=== PATIENT | female | born 1940 | race Caucasian/White ===

== ENCOUNTER 2018-03-02 17:49 | Emergency (ER) | payer MEDICARE ==
[~2018-03-02] VITALS: Ht 172.7 cm; Wt 105.9 kg
[2018-03-02] MEDS ORDERED: VITA80004 PO (18:33)
[2018-03-02] MEDS ORDERED: ASCO10004 PO (18:33)
[2018-03-02] MEDS ORDERED: LINA5TAB PO (18:33)
[2018-03-02] MEDS ORDERED: BUPR75TA6 PO (18:33)
[2018-03-02] MEDS ORDERED: LOSA1TAB25 PO (18:33)
[2018-03-02] MEDS ORDERED: CHOL500015 PO (18:33)
[2018-03-02 18:39] LABS: BASOPHILS # (AUTO) 0.02 x10^3/uL (0-0.1); BASOPHILS % (AUTO) 0 % (0-1); EOSINOPHILS % (AUTO) 2 % (1-7); LYMPHOCYTES # (AUTO) 1.85 x10^3/uL (1-3.4); LYMPHOCYTES % (AUTO) 31 % (22-44); MD NO; MEAN CORPUSCULAR HEMOGLOBIN 31.3 pg (27.0-34.8); MEAN CORPUSCULAR HGB CONC 33.9 g/dL (32.4-35.8); MEAN CORPUSCULAR VOLUME 92.2 fL (80-100); MEAN PLATELET VOLUME 7.2 fL (7.4-10.4); MONOCYTES # (AUTO) 0.35 x10^3/uL (0.2-0.8); MONOCYTES % (AUTO) 6 % (2-9); NEUTROPHILS # (AUTO) 3.64 x10^3/uL (1.8-6.8); NEUTROPHILS % (AUTO) 61 % (42-75); PLATELET COUNT 245 x10^3/uL (130-400); RED BLOOD COUNT 4.59 x10^6/uL (3.82-5.3); RED CELL DISTRIBUTION WIDTH 12.5 % (9.6-15.2)
[2018-03-02 18:46] LABS: ALBUMIN 3.7 g/dL (3.4-5.0); ANION GAP 7 mmol/L (5-15); CALCIUM 9.1 mg/dL (8.5-10.1); CHLORIDE 106 mmol/L (98-107); CREATININE 1.09 mg/dL (0.55-1.02)
[2018-03-02 20:23] VITALS: BP 131/48
== END 2018-03-02 20:37 | disposition home or self-care (01) ==
LOC: ED 20:31
DX: L03.115 Cellulitis of right lower limb (principal); L03.116 Cellulitis of left lower limb; M71.21 Synovial cyst of popliteal space [Baker], right knee; R60.9 Edema, unspecified; I10 Essential (primary) hypertension; E11.9 Type 2 diabetes mellitus without complications; I82.413 Acute embolism and thrombosis of femoral vein, bilateral
CPT/HCPCS: 36415; 71045; 80048; 82040; 83880; 85025; 93970; 99285

== ENCOUNTER → 2018-10-03 | Outpatient (CLI) | payer MEDICARE ==
[~2018-10-03] MED LIST: ASCO10004 PO; BUPR75TA6 PO; CHOL10003 PO; CHOL500015 PO; GLIM2TAB2 PO; HYDR-3237 PO; LINA5TAB PO; LOSA1TAB25 PO; VITA1TAB19 PO; VITA80004 PO; VITAMIN A PO
[2018-10-03 11:22] LABS: MICROSCOPIC NOT IND
== END | disposition home or self-care (01) ==
LOC: STAR 10:27
PROVIDERS: ATTEND Urology
DX: Z01.818 Encounter for other preprocedural examination (principal); N20.2 Calculus of kidney with calculus of ureter
CPT/HCPCS: 81003; 87086; 93005

== ENCOUNTER 2018-10-10 14:13 | Day surgery (SDC) | payer MEDICARE ==
[2018-10-03 11:26] VITALS: BP 168/82
[~2018-10-10] VITALS: Ht 172.7 cm; Wt 103.5 kg
[2018-10-10] MEDS ORDERED: LACTATED RINGERS 1,000 ML IV SCH ×2 (14:34→14:45)
[2018-10-10] MEDS ORDERED: ACETAMINOPHEN 500 MG TABLET PO ONE (15:00)
[2018-10-10] MEDS ORDERED: ONDANSETRON ODT 8 MG PO ONE (15:00)
[2018-10-10] MEDS ORDERED: FENTANYL PF 100 MCG/2ML ONE ×2 (15:27→16:56)
[2018-10-10] MEDS ORDERED: EPHEDRINE 50 MG/ML, 1ML ONE (15:51)
[2018-10-10] MEDS ORDERED: SUCCINYLCHOLINE 20 MG/ML, 10ML ONE (15:51)
[2018-10-10] MEDS ORDERED: CEFAZOLIN 1,000 MG ONE (17:18)
[2018-10-10] MEDS ORDERED: PROPOFOL 10 MG/ML, 20ML ONE (17:18)
[2018-10-10] MEDS ORDERED: DEXAMETHASONE 4 MG/ML, 1ML ONE (17:18)
[2018-10-10] MEDS ORDERED: HYDROmorphone 2 MG/ML, 1ML IVPush PRN (18:00)
[2018-10-10] MEDS ORDERED: OXYcodone 5 MG/5 ML ORAL.SOL UDC PO PRN (18:00)
[2018-10-10] MEDS ORDERED: FENTANYL PF 100 MCG/2ML IV PRN (18:00)
[2018-10-10] MEDS ORDERED: MIDAZOLAM 1 MG/ML, 2ML IV PRN (18:00)
[2018-10-10] MEDS ORDERED: ONDANSETRON 2MG/ML, 2ML IV PRN (18:00)
[2018-10-10] MEDS ORDERED: hydrALAzine 20 MG/ML, 1ML IV PRN (18:00)
[2018-10-10] MEDS ORDERED: D5%-0.45% NACL 1,000 ML IV SCH (19:00)
[2018-10-10] MEDS ORDERED: HYDROcodone/APAP 5/325 TABLET PO PRN (19:00)
[2018-10-10] MEDS ORDERED: ONDANSETRON 2MG/ML, 2ML IVPush PRN (19:00)
[2018-10-10] MEDS ORDERED: MORPHINE SULFATE 4 MG/ML, 1ML IV PRN (19:00)
[2018-10-10] MEDS ORDERED: HYDROcodone/APAP 5/325 TABLET ONE (19:05)
== END 2018-10-10 20:05 | disposition home or self-care (01) ==
LOC: OR 14:13 → 4NOR 18:19 → OR 20:05
PROVIDERS: ATTEND Urology
DX: N20.2 Calculus of kidney with calculus of ureter (principal); I10 Essential (primary) hypertension; E11.9 Type 2 diabetes mellitus without complications; E66.9 Obesity, unspecified; Z68.35 Body mass index [BMI] 35.0-35.9, adult; Z72.89 Other problems related to lifestyle; Z87.891 Personal history of nicotine dependence; Z98.890 Other specified postprocedural states; Z79.4 Long term (current) use of insulin; Z88.1 Allergy status to other antibiotic agents
CPT/HCPCS: 52356; 74018; 76000; 82360; 82962; 88300; C1758; C1769; C2617; J0330; J0690; J1100; J2704; J3010; J7120; Q0162; G0378

== ENCOUNTER 2018-11-02 09:13 | Day surgery (SDC) | payer MEDICARE ==
[~2018-11-02] VITALS: Ht 172.7 cm; Wt 103.0 kg
[2018-11-02 10:05] VITALS: BP 167/84
[2018-11-02] MEDS ORDERED: LACTATED RINGERS 1,000 ML IV SCH (10:15)
[2018-11-02 10:43] LABS: ALANINE AMINOTRANSFERASE 27 U/L (12-78); ALBUMIN 3.7 g/dL (3.4-5.0); ANION GAP 7 mmol/L (5-15); CALCIUM 8.9 mg/dL (8.5-10.1); CHLORIDE 112 mmol/L (98-107)
[2018-11-02 10:46] LABS: ALKALINE PHOSPHATASE 73 U/L (45-117); BILIRUBIN,TOTAL 0.4 mg/dL (0.2-1.0); TOTAL PROTEIN 6.9 g/dL (6.4-8.2)
[2018-11-02] MEDS ORDERED: FENTANYL PF 100 MCG/2ML ONE ×3 (11:27→12:39)
[2018-11-02] MEDS ORDERED: ONDANSETRON 2MG/ML, 2ML ONE (11:29)
[2018-11-02] MEDS ORDERED: DEXAMETHASONE 4 MG/ML, 1ML ONE (11:29)
[2018-11-02] MEDS ORDERED: PROPOFOL 10 MG/ML, 20ML ONE (11:29)
[2018-11-02] MEDS ORDERED: CEFAZOLIN 1,000 MG ONE (11:29)
[2018-11-02] MEDS ORDERED: HYDROmorphone 2 MG/ML, 1ML IVPush PRN (12:00)
[2018-11-02] MEDS ORDERED: PROMETHAZINE 25 MG/ML, 1ML IV PRN (12:00)
[2018-11-02] MEDS ORDERED: LABETALOL 5MG/ML, 20ML IV PRN (12:00)
[2018-11-02] MEDS ORDERED: DIAZEPAM 5 MG/ML, 2ML IVPush PRN (12:00)
[2018-11-02] MEDS ORDERED: hydrALAzine 20 MG/ML, 1ML IV PRN (12:00)
[2018-11-02] MEDS ORDERED: FENTANYL PF 100 MCG/2ML IV PRN (12:00)
[2018-11-02] MEDS ORDERED: ACETAMINOPHEN 325 MG TABLET PO PRN (12:00)
[2018-11-02] MEDS ORDERED: OXYcodone 5 MG/5 ML ORAL.SOL UDC PO PRN (12:00)
[2018-11-02] MEDS ORDERED: ALBUTEROL SULFATE 2.5 MG/3 ML NPPB PRN (12:00)
[2018-11-02] MEDS ORDERED: OXYcodone 5 MG/5 ML ORAL.SOL UDC ONE (12:39)
[2018-11-02] MEDS ORDERED: ACETAMINOPHEN 650 MG/20.3 ML UDC ONE (12:39)
== END 2018-11-02 14:05 | disposition home or self-care (01) ==
LOC: OUT 09:13
PROVIDERS: ATTEND Urology
DX: N20.0 Calculus of kidney (principal); E11.9 Type 2 diabetes mellitus without complications; I10 Essential (primary) hypertension; Z98.890 Other specified postprocedural states; Z72.89 Other problems related to lifestyle; Z87.891 Personal history of nicotine dependence; Z88.1 Allergy status to other antibiotic agents; Z79.84 Long term (current) use of oral hypoglycemic drugs
CPT/HCPCS: 36415; 52353; 74018; 76000; 80053; 82360; 88300; C1758; C1769; J0690; J1100; J2405; J2704; J3010; J7120